=== PATIENT | female | born 1945 | race Caucasian/White ===

== ENCOUNTER → 2019-12-21 | Outpatient (CLI) | payer MEDICARE ==
[~2019-12-21] MED LIST: ALPHAGAN-P 0.2%5 ML; ASPIRIN81 M1 PO; AVPAK PRIMIDONE50 M1; DUREZOL 5 ML5 ML; LISINOPRIL/HCTZ1 TA5 PO; LISINOPRIL10 MG PO; XALATAN 0.005%2.5 ML
== END | disposition home or self-care (01) ==
LOC: RAD 09:34
DX: M85.80 Other specified disorders of bone density and structure, unspecified site (principal); Z78.0 Asymptomatic menopausal state